=== PATIENT | female | born 1955 | race Caucasian/White ===

== ENCOUNTER 2017-08-20 12:22 | Emergency (ER) | payer MEDICAID ==
[~2017-08-20] VITALS: Ht 152.4 cm; Wt 84.0 kg
[2017-08-20 12:29] VITALS: Ht 152.4 cm; Wt 84.0 kg
== END 2017-08-20 15:51 | disposition left against medical advice (07) ==
LOC: ED 12:22
DX: Z53.21 Procedure and treatment not carried out due to patient leaving prior to being seen by health care provider (principal)